=== PATIENT | female | born 1990 | race Caucasian/White ===

== ENCOUNTER 2018-07-01 07:11 | Emergency (ER) | payer OTHER ==
[~2018-07-01] VITALS: Ht 162.6 cm; Wt 63.1 kg
[~2018-07-01 07:11] MED LIST: CEPH-263 PO; CEPH-264 PO; METR500T PO; NITR100C62 PO; PRENATAL VITAMIN PO; TRAM50TA PO
[2018-07-01 07:55] LABS: BASO % 0 % (0-3); EOS % 0 % (0-3); HEMATOCRIT 35.8 % (36.0-47.0); HEMOGLOBIN 11.9 g/dL (12.0-15.5); LYMPH # 0.8 x10^3/uL (1.0-4.8); LYMPH % 10 % (24-48); MEAN CORPUSCULAR HEMOGLOBIN 28 pg (25-35); MEAN CORPUSCULAR HGB CONC 33 g/dL (31-37); MEAN CORPUSCULAR VOLUME 85 fL (79-100); MONO # 0.7 x10^3/uL (0.0-1.1); MONO % 8 % (0-9); NEUT # 6.8 x10^3uL (1.8-7.7); NEUT % 82 % (31-73); PLATELET COUNT 207 x10^3/uL (140-400); RED BLOOD COUNT 4.23 x10^6/uL (3.50-5.40); RED CELL DISTRIBUTION WIDTH 15.9 % (11.5-14.5); WHITE BLOOD COUNT 8.3 x10^3/uL (4.0-11.0)
--- NOTE | 2018-07-01 08:05 | PHYS DOC ---
Past History Past Medical History: No Pertinent History Past Surgical History: No Surgical History Smoking: Cigarettes, Less than 1pk/day Alcohol Use: None Drug Use: None Adult General Chief Complaint Chief Complaint: COUGH HPI HPI 28-year-old female presents with vomiting and syncopal episode. The patient has had a nonproductive cough and intermittent vomiting last 2-3 days. The vomiting was worse yesterday. The patient got up this morning around 6 AM to go the bathroom. While she was on the toilet, her noticed that she seemed to pass out and leaned against the back of the toilet. He held her up and then helped her to the floor. The patient remembers waking up on the floor not remembering even going to the bathroom. She did not fall off the toilet. She has no injuries. Patient admits that she has not been able to keep down solids for a couple of days and has had decreased fluid intake. The patient's children have been sick with similar illness recently. She is unsure about fever, but denies chills. Review of Systems Review of Systems Constitutional: Denies fever or chills [] Eyes: Denies change in visual acuity, redness, or eye pain [] HENT: Denies nasal congestion or sore throat [] Respiratory: Denies cough or shortness of breath [] Cardiovascular: No additional information not addressed in HPI [] GI: Lower abdominal pain, nausea, vomiting.[] : Denies dysuria or hematuria [] Musculoskeletal: Denies back pain or joint pain [] Integument: Denies rash or skin lesions [] Neurologic: Denies headache, focal weakness or sensory changes [] Endocrine: Denies polyuria or polydipsia [] All other systems were reviewed and found to be within normal limits, except as documented in this note. Allergies Allergies Allergies Coded Allergies Type Severity Reaction Last Updated Verified coconut oil Allergy Intermediate Rash 05/14/15 Yes latex Allergy Intermediate 07/30/15 Yes Physical Exam Physical Exam Constitutional: Well developed, well nourished, no acute distress, non-toxic appearance. [] HENT: Normocephalic, atraumatic, bilateral external ears normal, oropharynx dry , no oral exudates, nose normal. [] Eyes: PERRLA, EOMI, conjunctiva normal, no discharge. [] Neck: Normal range of motion, no tenderness, supple, no stridor. [] Cardiovascular:Heart rate regular rhythm, no murmur [] Lungs & Thorax: Bilateral breath sounds clear to auscultation [] Abdomen: Bowel sounds normal, soft, no tenderness, no masses, no pulsatile masses. [] Skin: Warm, dry, no erythema, no rash. [] Back: No tenderness, no CVA tenderness. [] Extremities: No tenderness, no cyanosis, no clubbing, ROM intact, no edema. [] Neurologic: Alert and oriented X 3, normal motor function, normal sensory function, no focal deficits noted. [] Psychologic: Affect normal, judgement normal, mood anxious. [] Current Patient Data Lab Results Laboratory Tests Test 07/01/18 07:40 White Blood Count 8.3 x10^3/uL (4.0-11.0) Red Blood Count 4.23 x10^6/uL (3.50-5.40) Hemoglobin 11.9 g/dL (12.0-15.5) L Hematocrit 35.8 % (36.0-47.0) L Mean Corpuscular Volume 85 fL (79-100) Mean Corpuscular Hemoglobin 28 pg (25-35) Mean Corpuscular Hemoglobin Concent 33 g/dL (31-37) Red Cell Distribution Width 15.9 % (11.5-14.5) H Platelet Count 207 x10^3/uL (140-400) Neutrophils (%) (Auto) 82 % (31-73) H Lymphocytes (%) (Auto) 10 % (24-48) L Monocytes (%) (Auto) 8 % (0-9) Eosinophils (%) (Auto) 0 % (0-3) Basophils (%) (Auto) 0 % (0-3) Neutrophils # (Auto) 6.8 x10^3uL (1.8-7.7) Lymphocytes # (Auto) 0.8 x10^3/uL (1.0-4.8) L Monocytes # (Auto) 0.7 x10^3/uL (0.0-1.1) Eosinophils # (Auto) 0.0 x10^3/uL (0.0-0.7) Basophils # (Auto) 0.0 x10^3/uL (0.0-0.2) EKG EKG [] Radiology/Procedures Radiology/Procedures [] Impressions: CHEST PA LATERAL History: Cough, fever. Pt shielded. LMP 2-219 Comparison: None. Findings: The cardiomediastinal silhouette is normal. Pulmonary vasculature is normal. The lungs are clear. No pleural effusion or pneumothorax is seen. There is no acute bone abnormality. IMPRESSION: No acute cardiopulmonary process. Electronically signed by: Hiwot Hernandez MD (07/01/2018 8:01 AM) [id number] DICTATED AND SIGNED BY: HIWOT HERNANDEZ MD DATE: 07/01/18800 CC: ALLIE MEADOWS DO; PCP,NO Course & Med Decision Making Course & Med Decision Making Pertinent Labs and Imaging studies reviewed. (See chart for details) The patient's chest x-ray is unremarkable. The patient's labs are unremarkable. The patient refused her influenza test because it is uncomfortable. She refused a liter of normal saline condition doesn't want IVs. Her urinalysis is negative for infection. I believe this likely patient had a vasovagal event after urinating. I do not see any concerning findings on her workup. She is stable for discharge at this time. [] Dragon Disclaimer Dragon Disclaimer This electronic medical record was generated, in whole or in part, using a voice recognition dictation system. Departure Departure: Impression: Primary Impression: Vasovagal syncope Additional Impressions: Cough in adult Vomiting Viral syndrome Disposition: 01 HOME, SELF-CARE Condition: STABLE Referrals: PCP,ZULEYKA (PCP) Patient Instructions: Viral Syndrome Scripts Ondansetron (ONDANSETRON ODT) 4 Mg Tab.rapdis 1 TAB PO PRN Q6-8HRS PRN for VOMITING, #16 TAB Prov: ALLIE MEADOWS DO 07/01/18 Benzonatate (TESSALON PERLE) 100 Mg Capsule 1 CAP PO TID PRN for COUGH, #30 CAP Prov: ALLIE MEADOWS DO 07/01/18 Problem Qualifiers Additional Impressions: Vomiting Vomiting type: unspecified Vomiting Intractability: non-intractable Nausea presence: with nausea Qualified Codes: R11.2 - Nausea with vomiting, unspecified ALLIE MEADOWS DO Jul 01, 2018 08:05
[2018-07-01 08:10] LABS: ALBUMIN 3.6 g/dL (3.4-5.0); CALCIUM 8.5 mg/dL (8.5-10.1); CREATININE 0.7 mg/dL (0.6-1.0); GFR 99.6; POTASSIUM 3.3 mmol/L (3.5-5.1); TOTAL BILIRUBIN 0.4 mg/dL (0.2-1.0); TOTAL PROTEIN 7.2 g/dL (6.4-8.2)
[2018-07-01] MEDS: IV NORMAL SALINE 1,000ML 1,000 ML IV ONE (08:45)
[2018-07-01 09:39] LABS: AMORPHOUS SEDIMENT,UR PRESENT /HPF; BACTERIA,URINE MOD /HPF (0-FEW); BILIRUBIN,URINE NEG (NEG); CLARITY,URINE CLOUDY; COLOR,URINE AMBER; GLUCOSE,URINE NEG (NEG); NITRITE,URINE NEG (NEG); RBC,URINE 0 /HPF (0-2); SQUAMOUS EPITHELIAL CELL,UR MOD /LPF; UROBILINOGEN,URINE 0.2 mg/dL (0.2 mg/dL)
[2018-07-01 09:40] LABS: GRANULAR CASTS,URINE FEW /HPF; HYALINE CASTS, URINE FEW /HPF
[2018-07-01] MEDS ORDERED: BENZ100C PO (09:46)
[2018-07-01] MEDS ORDERED: ONDA4TAB12 PO (09:46)
[2018-07-01 10:18] VITALS: BP 93/48
== END 2018-07-01 10:18 | disposition home or self-care (01) ==
LOC: ER 07:11
DX: R55 Syncope and collapse (principal); R11.2 Nausea with vomiting, unspecified; B34.9 Viral infection, unspecified; F17.210 Nicotine dependence, cigarettes, uncomplicated; Z91.040 Latex allergy status; Z91.018 Allergy to other foods
CPT/HCPCS: 36415; 71046; 80053; 81001; 85025; 87086; 99284

== ENCOUNTER 2020-12-17 07:29 | Emergency (ER) | payer MEDICAID, OTHER ==
[~2020-12-17] VITALS: Ht 162.6 cm; Wt 63.1 kg
[~2020-12-17 07:29] MED LIST changes: +BENZ100C PO; +ONDA4TAB12 PO
[2020-12-17 07:36] VITALS: BP 120/94
--- NOTE | 2020-12-17 07:56 | PHYS DOC ---
Past History Past Medical History: No Pertinent History Past Surgical History: Tubal ligation Smoking: Cigarettes, Less than 1pk/day Alcohol Use: Occasionally Drug Use: None General Adult EDM: Chief Complaint: ABDOMINAL PAIN HPI: HPI: 30-year-old female presents with pelvic pain. The patient has been having sharp intermittent pain in her lower abdomen for the last couple of days. It is a moderate intensity sensation. She has had no change in bowel or bladder habits. She has had a tubal ligation but wants to make sure she is not . She is actually quite worried about being . She had a family member who had a tubal ligation then had twins. She denies nausea, vomiting, fever, chills. Last menstrual cycle was over a month ago. Review of Systems: Review of Systems: Constitutional: Denies fever or chills Eyes: Denies change in visual acuity HENT: Denies nasal congestion or sore throat Respiratory: Denies cough or shortness of breath Cardiovascular: Denies chest pain or edema GI: Suprapubic abdominal pain. Denies nausea, vomiting, bloody stools or diarrhea : Denies dysuria Musculoskeletal: Denies back pain or joint pain Integument: Denies rash Neurologic: Denies headache, focal weakness or sensory changes Endocrine: Denies polyuria or polydipsia Lymphatic: Denies swollen glands Psychiatric: Denies depression or anxiety Allergies: Allergies: Allergies Coded Allergies Type Severity Reaction Last Updated Verified coconut oil Allergy Intermediate Rash 05/14/15 Yes latex Allergy Intermediate 07/30/15 Yes Physical Exam: PE: Constitutional: Well developed, well nourished, no acute distress, non-toxic appearance. [] HENT: Normocephalic, atraumatic, bilateral external ears normal, oropharynx moist, no oral exudates, nose normal. [] Eyes: PERRLA, EOMI, conjunctiva normal, no discharge. [] Neck: Normal range of motion, no tenderness, supple, no stridor. [] Cardiovascular: Heart rate regular rhythm, no murmur [] Lungs & Thorax: Bilateral breath sounds clear to auscultation [] Abdomen: Bowel sounds normal, soft,mild suprapubic tenderness, no masses, no pulsatile masses. [] Skin: Warm, dry, no erythema, no rash. [] Back: No tenderness, no CVA tenderness. [] Extremities: No tenderness, no cyanosis, no clubbing, ROM intact, no edema. [] Neurologic: Alert and oriented X 3, normal motor function, normal sensory function, no focal deficits noted. [] Psychologic: Affect normal, judgement normal, mood normal. [] Current Patient Data: Vital Signs: Vital Signs Date Time Temp Pulse Resp B/P (MAP) Pulse Ox O2 Delivery O2 Flow Rate FiO2 12/17/20 07:36 97.9 94 16 120/94 99 Room Air EKG: EKG: [] Radiology/Procedures: Radiology/Procedures: [] Impressions: EXAMINATION: CT ABDOMEN+PELVIS W CLINICAL HISTORY: Pelvic pain TECHNIQUE: CT of the abdomen and pelvis was performed using standard technique, scanning from just above the dome of the diaphragm to the symphysis pubis following administration of intravenous contrast. CT Dose Reduction Employed: One or more of the following individualized dose reduction techniques were utilized for this examination: 1. Automated exposure control 2. Adjustment of the mA and/or kV according to patient size 3. Use of iterative reconstruction technique. COMPARISON: None FINDINGS: Visualized heart and lungs unremarkable. Liver, gallbladder, pancreas, spleen, adrenal glands, and kidneys unremarkable. Right tubal ligation clip in place. Left tubal ligation clip detached and displaced into the left upper quadrant, interposed between the left kidney and spleen. 1.7 cm thick-walled right adnexal cyst, suggestive of a corpus luteum or involuting cyst. Small area of myometrial hypoattenuation in the dorsal uterine fundus, nonspecific. Mildly filled urinary bladder. Mild free fluid in the pelvis. No bowel dilation or definite wall thickening. Appendix within normal limits. No abdominal aortic or iliac artery aneurysm. No evidence of acute osseous abnormality. IMPRESSION: Mild free fluid in the pelvis with nonspecific thick-walled right adnexal cyst, possibly a corpus luteum or involuting ovarian cyst but a ruptured ovarian cyst is also not excluded. Nonspecific myometrial hypoattenuation as described. Rec ommend pelvic ultrasound for further evaluation. Left tubal ligation clip displaced into the left upper quadrant. Electronically signed by: Isak Alvarez DO (12/17/2020 9:04 AM) [id number] DICTATED AND SIGNED BY: ISAK ALVAREZ DO DATE: 12/17/20 0845 CC: ALLIE MEADOWS DO; PCP,NO ~MTH0 0 Heart Score: C/O Chest Pain: N/A Risk Factors: Risk Factors: DM, Current or recent (<one month) smoker, HTN, HLP, family history of CAD, obesity. Risk Scores: Score 0 - 3: 2.5% MACE over next 6 weeks - Discharge Home Score 4 - 6: 20.3% MACE over next 6 weeks - Admit for Clinical Observation Score 7 - 10: 72.7% MACE over next 6 weeks - Early Invasive Strategies Course & Med Decision Making: Course & Med Decision Making Pertinent Labs and Imaging studies reviewed. (See chart for details) The patient's labs are unremarkable. She is not . She does not have a urinary tract infection. CT scan of the abdomen and pelvis shows that her left tubal ligation clip is dislodged and is now located in the left upper quadrant by her kidney. See official read for more details. The patient is pain-free at this time. She was most concerned about being . I have made her aware of these results and the need to follow-up with [facility]. She will follow up on Saturday. She is stable for discharge at this time. [] Rita Disclaimer: Rita Disclaimer: This electronic medical record was generated, in whole or in part, using a voice recognition dictation system. Departure Departure: Impression: Primary Impression: Ovarian cyst Additional Impression: Surgical complication Disposition: HOME / SELF CARE / HOMELESS Condition: STABLE Referrals: PCPZULEYKA (PCP) Patient Instructions: Ovarian Cyst, [id number] ALLIE MEADOWS DO Dec 17, 2020 07:56
[2020-12-17] MEDS ORDERED: IOHEXOL 300 MG/ML 75 ML VIAL. IV ONE (08:15)
[2020-12-17] MEDS ORDERED: CONTRAST GIVEN. MC PRN (08:15)
[2020-12-17 08:41] LABS: BASO % 1 % (0-3); EOS # 0.1 x10^3/uL (0.0-0.7); EOS % 3 % (0-3); HEMATOCRIT 36.1 % (36.0-47.0); HEMOGLOBIN 12.1 g/dL (12.0-15.5); LYMPH # 1.3 x10^3/uL (1.0-4.8); LYMPH % 27 % (24-48); MEAN CORPUSCULAR HEMOGLOBIN 30 pg (25-35); MEAN CORPUSCULAR HGB CONC 34 g/dL (31-37); MEAN CORPUSCULAR VOLUME 88 fL (79-100); MONO # 0.4 x10^3/uL (0.0-1.1); MONO % 8 % (0-9); NEUT % 61 % (31-73); PLATELET COUNT 234 x10^3/uL (140-400); RED BLOOD COUNT 4.09 x10^6/uL (3.50-5.40); RED CELL DISTRIBUTION WIDTH 15.7 % (11.5-14.5); WHITE BLOOD COUNT 4.9 x10^3/uL (4.0-11.0)
[2020-12-17 08:47] LABS: CALCIUM 8.1 mg/dL (8.5-10.1); CREATININE 0.7 mg/dL (0.6-1.0); GFR 98.3
[2020-12-17 08:50] LABS: BACTERIA,URINE MOD /HPF (0-FEW); BILIRUBIN,URINE NEG (NEG); CLARITY,URINE CLEAR; COLOR,URINE YELLOW; GLUCOSE,URINE NEG (NEG); NITRITE,URINE NEG (NEG); RBC,URINE OCC /HPF (0-2); UROBILINOGEN,URINE 0.2 mg/dL (0.2 mg/dL)
[2020-12-17 08:51] LABS: SQUAMOUS EPITHELIAL CELL,UR MOD /LPF
[2020-12-17 08:53] LABS: ALBUMIN 3.7 g/dL (3.4-5.0); ALBUMIN/GLOBULIN RATIO 1.2 (1.0-1.7); TOTAL BILIRUBIN 0.8 mg/dL (0.2-1.0); TOTAL PROTEIN 6.8 g/dL (6.4-8.2)
--- NOTE | 2020-12-17 09:06 | RAD ---
EXAMINATION: CT ABDOMEN+PELVIS W CLINICAL HISTORY: Pelvic pain TECHNIQUE: CT of the abdomen and pelvis was performed using standard technique, scanning from just ab ove the dome of the diaphragm to the symphysis pubis following administration of intravenous contrast . CT Dose Reduction Employed: One or more of the following individualized dose reduction techniques wer e utilized for this examination: 1. Automated exposure control 2. Adjustment of the mA and/or kV ac cording to patient size 3. Use of iterative reconstruction technique. COMPARISON: None FINDINGS: Visualized heart and lungs unremarkable. Liver, gallbladder, pancreas, spleen, adrenal glands, and kidneys unremarkable. Right tubal ligation clip in place. Left tubal ligation clip detached and displaced into the left upp er quadrant, interposed between the left kidney and spleen. 1.7 cm thick-walled right adnexal cyst, s uggestive of a corpus luteum or involuting cyst. Small area of myometrial hypoattenuation in the dors al uterine fundus, nonspecific. Mildly filled urinary bladder. Mild free fluid in the pelvis. No bowel dilation or definite wall thickening. Appendix within normal limits. No abdominal aortic or iliac artery aneurysm. No evidence of acute osseous abnormality. IMPRESSION: Mild free fluid in the pelvis with nonspecific thick-walled right adnexal cyst, possibly a corpus lut eum or involuting ovarian cyst but a ruptured ovarian cyst is also not excluded. Nonspecific myometri al hypoattenuation as described. Recommend pelvic ultrasound for further evaluation. Left tubal ligation clip displaced into the left upper quadrant. Electronically signed by: Isak Quiles DO (12/17/2020 9:04 AM) [id number]
== END 2020-12-17 10:08 | disposition home or self-care (01) ==
LOC: ER 07:29
DX: N83.201 Unspecified ovarian cyst, right side (principal); F17.210 Nicotine dependence, cigarettes, uncomplicated; Z98.51 Tubal ligation status; Z91.040 Latex allergy status; Z88.8 Allergy status to other drugs, medicaments and biological substances; Y83.8 Other surgical procedures as the cause of abnormal reaction of the patient, or of later complication, without mention of misadventure at the time of the procedure
CPT/HCPCS: 36415; 74177; 80053; 81001; 81025; 85025; 87086; 99285

== ENCOUNTER 2021-03-14 16:32 | Emergency (ER) | payer MEDICAID ==
[~2021-03-14] VITALS: Ht 157.5 cm; Wt 53.4 kg
[2021-03-14 17:29] VITALS: BP 126/85
--- NOTE | 2021-03-14 18:21 | PHYS DOC ---
Past History Past Medical History: No Pertinent History (RADHA ALEXANDER APRN) Past Surgical History: No Surgical History (RADHA ALEXANDER APRN) Smoking: Cigarettes, Less than 1pk/day Alcohol Use: None Drug Use: None (RADHA ALEXANDER APRN) Adult General Chief Complaint Chief Complaint: GI PROBLEM HPI HPI Patient is a 31-year-old female presents to the emergency department reporting she had performed a test at home and was unsure if it was positive or not because she is currently on her menstrual cycle. Patient reports she called her [employer] and was told to come straight to the emergency department to have a test performed. Patient reports her menstrual cycle started 3 days ago with normal duration of flow, started on time. Patient denies nausea, vomiting, diarrhea. Patient denies abdominal pain or discomfort. Patient denies other physical complaints or physical concerns. (RADHA ALEXANDER APRN) Review of Systems Review of Systems 14 body systems of review of systems have been reviewed. See HPI for pertinent positives and negative responses, otherwise all other systems are negative, nonpertinent or noncontributory. Constitutional: Negative except as outlined in HPI above. Skin: Negative except as outlined in HPI above. Eyes: Negative except as outlined in HPI above. HENT: Negative except as outlined in HPI above. Respiratory: Negative except as outlined in HPI above. Cardiovascular: Negative except as outlined in HPI above. GI: Negative except as outlined in HPI above. : Negative except as outlined in HPI above. Musculoskeletal: Negative except as outlined in HPI above. Integument: Negative except as outlined in HPI above. Neurologic: Negative except as outlined in HPI above. Endocrine: Negative except as outlined in HPI above. Lymphatic: Negative except as outlined in HPI above. Psychiatric: Negative except as outlined in HPI above. (RADHA ALEXANDER APRN) Allergies Allergies Allergies Coded Allergies Type Severity Reaction Last Updated Verified coconut oil Allergy Intermediate Rash 05/14/15 Yes latex Allergy Intermediate 07/30/15 Yes (RADHA ALEXANDER APRN) Physical Exam Physical Exam Constitutional: Well developed, well nourished, no acute distress, non-toxic appearance. 31-year-old female in no apparent distress. HENT: Normocephalic, atraumatic. Eyes: Conjunctiva normal, no discharge. Neck: Normal range of motion, no stridor. Cardiovascular: No cyanosis appreciated, distal cap refill less than 2 seconds. Lungs & Thorax: Patient is in no respiratory distress, no audible adventitious lung sounds appreciated. Abdomen: Nontender, no abnormalities noted. Skin: Warm, dry, no erythema, no rash. Back: No tenderness, no deformities. Extremities: No tenderness, no cyanosis, no clubbing, ROM intact, no edema. Neurologic: Alert and oriented X 3, normal motor function, normal sensory function, no focal deficits noted. Psychologic: Affect normal, judgement normal, mood normal. (RADHA ALEXANDER APRN) Current Patient Data Vital Signs Vital Signs Date Time Temp Pulse Resp B/P (MAP) Pulse Ox O2 Delivery O2 Flow Rate FiO2 03/14/21 17:29 97.8 108 16 126/85 (99) 99 Room Air Lab Results Laboratory Tests Test 03/14/21 17:07 POC Urine HCG, Qualitative hcg negative (Negative) (RADHA ALEXANDER APRN) EKG EKG [] (RADHA ALEXANDER APRN) Radiology/Procedures Radiology/Procedures [] (RADHA ALEXANDER APRN) Heart Score C/O Chest Pain: No Risk Factors: Risk Factors: DM, Current or recent (<one month) smoker, HTN, HLP, family history of CAD, obesity. Risk Scores: Risk Factors: DM, Current or recent (<one month) smoker, HTN, HLP, family history of CAD, obesity. (RADHA ALEXANDER APRN) Course & Med Decision Making Course & Med Decision Making Pertinent Labs and Imaging studies reviewed. (See chart for details) 31-year-old female, vital signs reviewed, presents emergency department concerning taking a test at home and being able to read it related to her being on her menstrual cycle. Physical examination unremarkable, will order urinalysis assay and urine test Patient is ED nurse reports patient has eloped from the emergency department, urinalysis assay is pending at this time, the patient is not per urine test. Patient has eloped from the emergency department. (RADHA ALEXANDER APRN) Course & Med Decision Making I was the Attending physician on the above date of service of this patient. This patient was evaluated, examined, treated, and dispositioned from the emergency department by the mid-level practitioner. Although I was working at the time , no assistance was requested. Electronically signed, Joann Lin DO (JOANN LIN DO) Rita Disclaimer Rita Disclaimer This electronic medical record was generated, in whole or in part, using a voice recognition dictation system. (RADHA ALEXANEDR APRN) Departure Departure: Impression: Primary Impression: Eloped from emergency department Disposition: 07 LEFT AWOL/ELOPED Condition: GOOD Referrals: PCP,NO (PCP) RADHA ALEXANDER APRN Mar 14, 2021 18:21 JOANN LIN DO Mar 15, 2021 07:07
[2021-03-14 20:23] LABS: BACTERIA,URINE 0 /HPF (0-FEW); BILIRUBIN,URINE NEG (NEG); CLARITY,URINE CLEAR; COLOR,URINE YELLOW; GLUCOSE,URINE NEG (NEG); NITRITE,URINE NEG (NEG); RBC,URINE 0 /HPF (0-2); SQUAMOUS EPITHELIAL CELL,UR OCC /LPF; UROBILINOGEN,URINE 0.2 mg/dL (0.2 mg/dL)
== END 2021-03-14 18:47 | disposition left against medical advice (07) ==
LOC: ER 16:32
DX: Z32.02 Encounter for pregnancy test, result negative (principal); F17.210 Nicotine dependence, cigarettes, uncomplicated; Z91.040 Latex allergy status; Z88.8 Allergy status to other drugs, medicaments and biological substances
CPT/HCPCS: 81001; 81025; 99283